=== PATIENT | female | born 1985 | race Caucasian/White ===

== ENCOUNTER 2017-10-08 09:17 | Inpatient (IN) | payer OTHER ==
[~2017-10-08 09:17] MED LIST: OXYTOCIN 30 UNITS/LR 500 ML BAG IV
[2017-10-08] MEDS ORDERED: CEFAZOLIN 2 GM/50 ML (PMX) 50 ML IV (09:30)
[2017-10-08] MEDS ORDERED: MISOPROSTOL 200 MCG TAB PR ×2 (09:30→12:00)
[2017-10-08] MEDS ORDERED: CARBOPROST 250 MCG INJ IM ×2 (09:30→12:00)
[2017-10-08] MEDS ORDERED: METHYLERGONOVINE 0.2 MG INJ IM ×2 (09:30→12:00)
[2017-10-08] MEDS ORDERED: OXYTOCIN 30 UNITS/LR 500 ML IV ×3 (09:30→12:00)
[2017-10-08 09:50] LABS: ADD MAN DIFF? NO
[2017-10-08 09:53] LABS: BASOPHILS % 0.4 % (0.0-2.0); EOSINOPHILS # 0.1 10^3/ul (0.0-0.5); EOSINOPHILS % 0.7 % (0.0-7.0); HEMATOCRIT 36.4 % (37.0-47.0); LYMPHOCYTES # 1.6 10^3/ul (0.8-2.9); LYMPHOCYTES % 18.8 % (15.0-51.0); MEAN CORPUSCULAR VOLUME 87.9 fl (82.0-101.0); MEAN PLATELET VOLUME 10.5 fl (7.4-10.4); MONOCYTE # 0.6 10^3/ul (0.3-0.9); MONOCYTES % 6.6 % (0.0-11.0); NEUTROPHIL # 6.1 10^3/ul (1.6-7.5); NEUTROPHILS % 72.8 % (39.0-77.0); PLATELET COUNT 231 10^3/UL (140-415); RED BLOOD COUNT 4.14 10^6/ul (4.20-5.40); RED CELL DISTRIBUTION WIDTH 14.4 % (11.5-14.5)
[2017-10-08 09:53] LABS: WHITE BLOOD COUNT 8.4 10^3/ul (4.8-10.8)
[2017-10-08] MEDS: LACTATED RINGER'S 1,000 ML IV ×2 (10:03→10:30)
[2017-10-08 10:13] LABS: INR 1.09; PARTIAL THROMBOPLASTIN TIME 29.5 Sec (25.0-35.0); PROTIME 14.3 Sec (11.9-14.9); PT RATIO 1.1
[2017-10-08] MEDS ORDERED: morphine SULFATE/PF (10 MG/10 ML) INJ (10:42)
[2017-10-08] MEDS ORDERED: PHENYLephrine (100 MCG/ML) 5ML SYG (10:42)
[2017-10-08] MEDS ORDERED: OXYTOCIN 10 UNIT INJ (10:42)
[2017-10-08] MEDS ORDERED: BUPIVACAINE 0.75%/DEXT (SPINAL) 2 ML INJ (10:42)
[2017-10-08] MEDS ORDERED: ONDANSETRON 4 MG INJ (10:42)
[2017-10-08] MEDS: CEFAZOLIN 2 GM/50 ML (PMX) 50 ML IV ×2 (10:45→22:59)
[2017-10-08 10:47] LABS: HEPATITIS B SURFACE ANTIGEN NEGATIVE (NEGATIVE)
[2017-10-08] MEDS ORDERED: FENTAnyl 50 MCG/ML VIAL (11:27)
[2017-10-08] MEDS ORDERED: NALOXONE (0.4 MG/ML) INJ IV (12:00)
[2017-10-08] MEDS ORDERED: NACL 0.9% 3 ML SYG IV (12:00)
[2017-10-08] MEDS: IBUPROFEN 600 MG TAB PO ×3 (12:00→23:32)
[2017-10-08] MEDS ORDERED: DIPHENHYDRAMINE 50 MG INJ IV (12:00)
[2017-10-08] MEDS ORDERED: WITCH HAZEL/GLYCERIN PAD PR (12:00)
[2017-10-08] MEDS ORDERED: SENNA/DOCUSATE NA (8.6MG/50MG) TAB PO (12:00)
[2017-10-08] MEDS ORDERED: BENZOCAINE 20% 56 ML SPRAY TOP (12:00)
[2017-10-08] MEDS ORDERED: ONDANSETRON 4 MG INJ IV (12:00)
[2017-10-08] MEDS ORDERED: DIBUCAINE 1% 30 GM OINT PR (12:00)
[2017-10-08] MEDS: LEVOTHYROXINE 100 MCG TAB PO (12:00)
[2017-10-08] MEDS ORDERED: morphine 2 MG INJ IV (12:00)
[2017-10-08] MEDS: ONDANSETRON 4 MG INJ IV (12:38)
[2017-10-08] MEDS: LANOLIN 7 GM TUBE TOP (15:47)
[2017-10-08] MEDS: OXYTOCIN 30 UNITS/LR 500 ML IV (15:48)
[2017-10-08 19:56] LABS: RAPID PLASMA REAGIN NONREACTIVE (NR)
[2017-10-08] MEDS: SENNA/DOCUSATE NA (8.6MG/50MG) TAB PO (21:14)
[2017-10-08] MEDS: MAGNESIUM HYDROXIDE 30ML CUP PO (21:14)
[2017-10-09] MEDS: KETOROLAC 30 MG INJ IV (00:06)
[2017-10-09] MEDS: LACTATED RINGER'S 1,000 ML IV ×2 (02:08→08:00)
[2017-10-09] MEDS: IBUPROFEN 600 MG TAB PO ×3 (05:31→17:32)
[2017-10-09] MEDS: CEFAZOLIN 2 GM/50 ML (PMX) 50 ML IV (06:49)
[2017-10-09 08:21] LABS: ADD MAN DIFF? NO
[2017-10-09 08:25] LABS: BASOPHILS % 0.3 % (0.0-2.0); EOSINOPHILS # 0.1 10^3/ul (0.0-0.5); EOSINOPHILS % 0.8 % (0.0-7.0); HEMATOCRIT 30.6 % (37.0-47.0); HEMOGLOBIN 9.8 g/dl (12.0-16.0); LYMPHOCYTES # 1.4 10^3/ul (0.8-2.9); LYMPHOCYTES % 14.7 % (15.0-51.0); MEAN CORPUSCULAR HEMOGLOBIN 29.1 pg (29.0-33.0); MEAN CORPUSCULAR VOLUME 90.8 fl (82.0-101.0); MEAN PLATELET VOLUME 11.1 fl (7.4-10.4); MONOCYTE # 0.7 10^3/ul (0.3-0.9); MONOCYTES % 7.3 % (0.0-11.0); NEUTROPHIL # 7.1 10^3/ul (1.6-7.5); NEUTROPHILS % 76.3 % (39.0-77.0); PLATELET COUNT 200 10^3/UL (140-415); RED BLOOD COUNT 3.37 10^6/ul (4.20-5.40); RED CELL DISTRIBUTION WIDTH 14.9 % (11.5-14.5)
[2017-10-09 08:25] LABS: WHITE BLOOD COUNT 9.3 10^3/ul (4.8-10.8)
[2017-10-09] MEDS: MAGNESIUM HYDROXIDE 30ML CUP PO ×2 (09:04→21:43)
[2017-10-09] MEDS: SENNA/DOCUSATE NA (8.6MG/50MG) TAB PO ×2 (09:04→21:43)
[2017-10-09] MEDS: OXYCODONE/ASPIRIN (4.88/325) TAB PO (21:44)
[2017-10-10] MEDS: OXYCODONE/ASPIRIN (4.88/325) TAB PO ×3 (03:37→23:56)
[2017-10-10] MEDS: IBUPROFEN 600 MG TAB PO ×5 (05:34→23:55)
[2017-10-10] MEDS: MAGNESIUM HYDROXIDE 30ML CUP PO ×2 (09:49→20:56)
[2017-10-10] MEDS: SENNA/DOCUSATE NA (8.6MG/50MG) TAB PO ×2 (09:49→20:56)
[2017-10-11] MEDS: OXYCODONE/ASPIRIN (4.88/325) TAB PO (05:14)
[2017-10-11] MEDS: IBUPROFEN 600 MG TAB PO ×2 (05:14→11:44)
[2017-10-11] MEDS: MAGNESIUM HYDROXIDE 30ML CUP PO (08:12)
[2017-10-11] MEDS: SENNA/DOCUSATE NA (8.6MG/50MG) TAB PO (08:12)
[2017-10-11] MEDS: DIPHTH/TET/ACEL PERTUSS (ADULT) 0.5 ML VIAL IM* (11:46)
== END 2017-10-11 16:25 | disposition home or self-care (01) | DRG 766 ==
LOC: L-D 09:17 → PP1 14:58
PROVIDERS: Obstetrics & Gynecology
PROC: 10D00Z1 Extraction of Products of Conception, Low, Open Approach (ICD-10-PCS; principal; 2017-10-08 10:30)
PROC: 0UB70ZZ Excision of Bilateral Fallopian Tubes, Open Approach (ICD-10-PCS; 2017-10-08 10:30)
DX: O99.284 Endocrine, nutritional and metabolic diseases complicating childbirth (principal); E03.9 Hypothyroidism, unspecified; O34.219 Maternal care for unspecified type scar from previous cesarean delivery; Z3A.39 39 weeks gestation of pregnancy; Z37.0 Single live birth; Z30.2 Encounter for sterilization
CPT/HCPCS: 85025; 85610; 85730; 86592; 86850; 86900; 86901; 87340; 88302; 90715; 99464

== ENCOUNTER 2017-10-18 21:34 | Emergency (ER) | payer OTHER ==
[2017-10-19] MEDS: ACETAMINOPHEN 500 MG TAB PO (01:06)
[2017-10-19] MEDS: SOD CHLORIDE 0.9% 1,000 ML IV (01:07)
[2017-10-19 01:14] LABS: ADD MAN DIFF? NO
[2017-10-19 01:19] LABS: BASOPHILS % 0.3 % (0.0-2.0); EOSINOPHILS # 0.1 10^3/ul (0.0-0.5); EOSINOPHILS % 0.8 % (0.0-7.0); HEMATOCRIT 36.1 % (37.0-47.0); HEMOGLOBIN 11.9 g/dl (12.0-16.0); MEAN CORPUSCULAR VOLUME 87.8 fl (82.0-101.0); MEAN PLATELET VOLUME 9.6 fl (7.4-10.4); MONOCYTE # 0.5 10^3/ul (0.3-0.9); MONOCYTES % 4.2 % (0.0-11.0); NEUTROPHIL # 9.8 10^3/ul (1.6-7.5); NEUTROPHILS % 84.8 % (39.0-77.0); PLATELET COUNT 329 10^3/UL (140-415); RED BLOOD COUNT 4.11 10^6/ul (4.20-5.40); RED CELL DISTRIBUTION WIDTH 14.3 % (11.5-14.5)
[2017-10-19 01:19] LABS: WHITE BLOOD COUNT 11.5 10^3/ul (4.8-10.8)
[2017-10-19 01:25] LABS: ADD UMIC YES; UR ASCORBIC ACID NEGATIVE (NEGATIVE); UR BACTERIA FEW /HPF (NONE SEEN); UR BILIRUBIN (Dip) NEGATIVE (NEGATIVE); UR BLOOD (Dip) 3+ mg/dL (NEGATIVE); UR CLARITY SLIGHTLY CLOUDY (CLEAR); UR COLOR YELLOW (YELLOW); UR GLUCOSE (Dip) NEGATIVE (NEGATIVE); UR KETONES (Dip) NEGATIVE (NEGATIVE); UR LEUKOCYTE ESTERASE (Dip) 1+ Leu/ul (NEGATIVE); UR NITRITE (Dip) NEGATIVE (NEGATIVE); UR RBC 17 /HPF (0-5); UR SPECIFIC GRAVITY (Dip) 1.008 (1.003-1.030); UR SQUAMOUS EPITHELIAL CELL FEW /HPF (FEW); UR TOTAL PROTEIN (Dip) NEGATIVE (NEGATIVE); UR UROBILINOGEN (Dip) NEGATIVE (NEGATIVE); UR WBC 21 /HPF (0-5)
[2017-10-19 01:43] LABS: ALANINE AMINOTRANSFERASE 27 IU/L (13-69); ALBUMIN 3.9 g/dl (3.3-4.9); ALBUMIN/GLOBULIN RATIO 0.97; ALKALINE PHOSPHATASE 90 IU/L (42-121); ANION GAP 17 (8-16); ASPARTATE AMINO TRANSFERASE 20 IU/L (15-46); BILIRUBIN,INDIRECT 0.3 mg/dl (0-1.1); BILIRUBIN,TOTAL 0.3 mg/dl (0.2-1.3); BLOOD UREA NITROGEN 9 mg/dl (7-20); CALCIUM 9.2 mg/dl (8.4-10.2); CARBON DIOXIDE 26 mmol/L (21-31); CHLORIDE 102 mmol/L (97-110); CREATININE 0.64 mg/dl (0.44-1.00); GLUCOSE 110 mg/dl (70-220); LIPASE 34 U/L (23-300); POTASSIUM 3.8 mmol/L (3.5-5.1); SODIUM 141 mmol/L (135-144); TOTAL PROTEIN 7.9 g/dl (6.1-8.1)
[2017-10-19] MEDS: SOD CHLORIDE 0.9% 100 ML (02:15)
[2017-10-19] MEDS: IOHEXOL 300MG/ML 150 ML BTL (02:15)
[2017-10-19] MEDS ORDERED: CEFTRIAXONE 1 GM/50 ML (PMX) 50 ML IVPB (04:30)
[2017-10-19] MEDS: CEFTRIAXONE 2 GM/50 ML (PMX) 50 ML IVPB (05:29)
[2017-10-19] MEDS: ACETAMINOPHEN 325 MG TAB PO (05:40)
[2017-10-19] MEDS: KETOROLAC 30 MG INJ IV (05:41)
== END 2017-10-19 07:25 | disposition home or self-care (01) ==
LOC: FTE 21:34
DX: N30.00 Acute cystitis without hematuria (principal); N61.0 Mastitis without abscess
CPT/HCPCS: 36415; 74177; 76856; 80053; 81001; 83690; 85025; 96361; 96374; 96375; 99285-25